=== PATIENT | male | born 1995 | race Hispanic/Latino ===

== ENCOUNTER 2017-06-02 22:29 | Emergency (ER) | payer MEDICAID, OTHER ==
[2017-06-02 23:07] LABS: APPEARANCE,URINE Clear (CLEAR); BILIRUBIN,URINE Negative (NEGATIVE); COLOR,URINE Yellow (YELLOW); GLUCOSE, URINE (UA) Negative (NEGATIVE); KETONES,URINE Negative (NEGATIVE); LEUKOCYTE ESTERASE ,URINE Negative (NEGATIVE); NITRATE,URINE Negative (NEGATIVE); OCCULT BLOOD,URINE Negative (NEGATIVE); PROTEIN,URINE Negative (NEGATIVE); UROBILINOGEN,URINE 0.2 mg/dL (0.2-1.0)
== END 2017-06-02 23:18 | disposition home or self-care (01) ==
LOC: EDH 22:29
DX: Z20.2 Contact with and (suspected) exposure to infections with a predominantly sexual mode of transmission (principal)
CPT/HCPCS: 81003; 87486; 87797

== ENCOUNTER 2017-06-08 11:57 | Emergency (ER) | payer SELFPAY | END 2017-06-08 12:20 | disposition home or self-care (01) | LOC: EDH 11:57 | DX: Z00.00 Encounter for general adult medical examination without abnormal findings (principal); Z72.0 Tobacco use | CPT/HCPCS: 99281 ==

== ENCOUNTER 2017-12-29 10:59 | Emergency (ER) | payer OTHER | END 2017-12-29 12:19 | disposition home or self-care (01) | LOC: EDH 10:59 | DX: J20.9 Acute bronchitis, unspecified (principal); Z72.0 Tobacco use | CPT/HCPCS: 71046 ==

== ENCOUNTER 2020-06-23 17:07 | Emergency (ER) | payer OTHER | END 2020-06-23 17:32 | disposition left against medical advice (07) | LOC: EDH 17:07 | DX: S61.412A Laceration without foreign body of left hand, initial encounter (principal); Z72.0 Tobacco use; W22.8XXA Striking against or struck by other objects, initial encounter; Y93.89 Activity, other specified; Y92.89 Other specified places as the place of occurrence of the external cause; Y99.8 Other external cause status | CPT/HCPCS: 99281 ==